=== PATIENT | male | born 1990 | race Caucasian/White ===

== ENCOUNTER 2019-03-13 06:15 | Day surgery (SDC) | payer BC ==
[~2019-03-13] VITALS: Ht 167.6 cm; Wt 72.6 kg
[2019-03-13] MEDS ORDERED: PROPOFOL 200MG/ 20ML VIAL (DIPRIVAN) IV ONE (08:15)
[2019-03-13] MEDS ORDERED: KETOROLAC TROMETHAMINE 30 MG VIAL IVP ONE (08:15)
[2019-03-13] MEDS ORDERED: ROCURONIUM BROMIDE 10 MG/ML (ZEMURON) IV ONE (08:15)
[2019-03-13] MEDS ORDERED: fentaNYL CITRATE 250 MCG/5 ML AMP IV ONE (08:15)
[2019-03-13] MEDS ORDERED: MIDAZOLAM HCL 5 MG/5 ML VIAL IVP ONE (08:15)
[2019-03-13] MEDS ORDERED: DEXAMETHASONE SOD PHOSPHATE 4 MG/ML VIAL IVP ONE (08:15)
[2019-03-13] MEDS ORDERED: SUCCINYLCHOLINE CHLORIDE 20 MG/ML(QUELICIN) IVP ONE (08:15)
[2019-03-13] MEDS ORDERED: LR 1,000 ML IV.SOLN IV ONE (08:15)
[2019-03-13] MEDS ORDERED: NS IRRIG SOLN 1000 ML IR ONE (08:15)
[2019-03-13] MEDS ORDERED: SEVOFLURANE 15 MIN GAS INH ONE (08:15)
[2019-03-13] MEDS ORDERED: ONDANSETRON HCL 4 MG/2 ML VIAL IVP ONE (08:15)
[2019-03-13] MEDS ORDERED: HYDROcodone/ACETAMIN 5-325 MG TAB (NORCO/ VICODIN) PO PRN (09:45)
[2019-03-13] MEDS ORDERED: ONDANSETRON 4 MG ODT TAB PO PRN (09:45)
[2019-03-13 10:43] VITALS: BP_SYST 125
[2019-03-13] MEDS ORDERED: HYDROcodone/ACETAMIN 5-325 MG TAB (NORCO/ VICODIN) ONE (10:50)
== END 2019-03-13 11:10 | disposition home or self-care (01) ==
LOC: SDS 06:15
PROVIDERS: ATTEND Otolaryngology
DX: S02.2XXA Fracture of nasal bones, initial encounter for closed fracture (principal); J34.2 Deviated nasal septum; Y04.0XXA Assault by unarmed brawl or fight, initial encounter; Y93.89 Activity, other specified; Y92.89 Other specified places as the place of occurrence of the external cause; Y99.8 Other external cause status
CPT/HCPCS: 21320; J0330; J1100; J1885; J2250; J2405; J2704; J3010; J7120